=== PATIENT | female | born 1980 | race Two or more races ===

== ENCOUNTER → 2025-08-31 | Outpatient (CLI) | payer BC, SELFPAY ==
--- NOTE | 2025-08-31 10:30 | XR_ITS ---
Examination: Breast ultrasound complete, bilateral Date and time of exam: August 31, 2025, 1005 hours INDICATIONS: Left retroareolar palpable lump noticed beginning 4 months ago, tender to touch Technique: Real-time grayscale ultrasonographic imaging bilateral breasts, including all 4 quadrants as well as nipple retroareolar and axillary regions. Findings: Sonographic images right breast 1:00 cyst 7 x 5 mm 7:00 cyst 10 x 10 mm Retroareolar cyst 7 x 5 mm Smaller cysts No solid nodules Sonographic images left breast 12:00 cyst 5 x 5 mm 11:00 cyst 6 x 6 mm Retroareolar solid mass indistinct margins taller than wide 15 x 17 x 14 mm IMPRESSION: BI-RADS Category 4: Suspicious for malignancy Suspicious mass retroareolar region left breast, biopsy is needed to exclude breast carcinoma, this mass is amenable to ultrasound-guided breast biopsy for diagnosis
--- NOTE | 2025-08-31 11:45 | XR_ITS ---
Examination: Diagnostic digital mammography, bilateral Computer aided detection 3-D breast Tomosynthesis, bilateral Date and time of exam: August 31, 2025, 1023 hours INDICATIONS: Palpable lump retroareolar region left breast Technique: Nonmagnified MLO, CC views of the breasts to been obtained, reconstructed from 3-D Tomosynthesis images. R2 computer aided detection program utilized for evaluation of suspicious masses and/or abnormal calcifications. 3-D Tomosynthesis images obtained. Findings: The breasts are heterogeneously dense, which may obscure small masses 16 mm poorly defined nodule retroareolar region left breast, best depicted on the left breast sonogram today indistinct margins Grouped microcalcifications upper outer left breast retroareolar Impression: BI-RADS Category 4: Suspicious for malignancy Suspicious mass retroareolar region left breast, best depicted on the left breast sonogram today, biopsy of this nodule retroareolar is needed to exclude breast carcinoma, the mass is amenable to ultrasound-guided breast biopsy Also recommend magnification spot views of the microcalcifications retroareolar region left breast.
== END | disposition home or self-care (01) ==
LOC: CDIM 09:37
PROVIDERS: Referring Provider Family Medicine; Visit Provider Family Medicine
DX: N63.42 Unspecified lump in left breast, subareolar (principal); R92.0 Mammographic microcalcification found on diagnostic imaging of breast
CPT/HCPCS: 76641; 77062; 77066; G0279